=== PATIENT | male | born 1970 | race Hispanic/Latino ===

== ENCOUNTER 2023-06-29 17:00 | Emergency (ER) | payer BC, OTHER ==
[~2023-06-29] VITALS: Ht 175.3 cm; Wt 79.4 kg
[2023-06-29 17:04] VITALS: BP 148/98; PULSE 114; RESP 22
[2023-06-29 18:00] LABS: RAPID GROUP A STREP negative (NEGATIVE)
[2023-06-29 18:09] LABS: SARS-CoV-2, RNA, NAAT NEGATIVE SARS CoV-2 (NEGATIVE)
[2023-06-29 18:10] LABS: INFLUENZA TYPE A NEGATIVE FOR TYPE A (NEG); INFLUENZA TYPE B NEGATIVE FOR TYPE B (NEG)
[2023-06-29] MEDS ORDERED: IBUP-2077 PO (18:24)
[2023-06-29] MEDS ORDERED: AMOX1TAB16 PO (18:24)
[2023-06-29] MEDS: IBUPROFEN 800 MG TAB PO ONE (18:43)
== END 2023-06-29 18:44 | disposition home or self-care (01) ==
LOC: EDH 17:00
DX: J03.90 Acute tonsillitis, unspecified (principal); R50.9 Fever, unspecified; E11.9 Type 2 diabetes mellitus without complications; F17.200 Nicotine dependence, unspecified, uncomplicated; Z20.822 Contact with and (suspected) exposure to COVID-19; Z79.899 Other long term (current) drug therapy
CPT/HCPCS: 87635; 87804; 87880